=== PATIENT | female | born 1950 | race Caucasian/White ===

== ENCOUNTER → 2021-09-13 | Outpatient (CLI) | payer OTHER ==
[2021-09-13 15:50] LABS: ALBUMIN 4.1 g/dL (3.4-4.8)
[2021-09-13 15:51] LABS: POTASSIUM 4.1 mmol/L (3.5-5.1)
[2021-09-13 15:52] LABS: CALCIUM 9.7 mg/dL (8.3-10.5)
[2021-09-13 15:53] LABS: TOTAL PROTEIN 7.1 g/dL (6.2-8.1)
[2021-09-13 15:55] LABS: TOTAL BILIRUBIN 0.2 mg/dL (0.2-1.2)
== END ==
LOC: LAB 15:05
DX: G25.0 Essential tremor (principal)

== ENCOUNTER → 2021-12-14 | Outpatient (CLI) | payer OTHER | LOC: RAD 14:02 | DX: Z11.1 Encounter for screening for respiratory tuberculosis (principal) ==

== ENCOUNTER → 2022-01-26 | Outpatient (REF) ==
[2022-01-26 11:30] LABS: POTASSIUM 3.9 mmol/L (3.5-5.1)
== END ==
LOC: LAB 10:56
PROVIDERS: Family Medicine
DX: R22.43 Localized swelling, mass and lump, lower limb, bilateral (principal)

== ENCOUNTER → 2022-02-16 | Outpatient (CLI) | payer OTHER ==
[2022-02-16 11:12] LABS: URINE APPEARANCE CLEAR; URINE BILIRUBIN NEGATIVE (NEGATIVE); URINE BLOOD NEGATIVE (NEGATIVE); URINE COLOR YELLOW; URINE GLUCOSE NEGATIVE (NEGATIVE); URINE KETONE 1+ (NEGATIVE); URINE LEUKOCYTE ESTERASE TRACE (NEGATIVE); URINE NITRATE NEGATIVE (NEGATIVE); URINE PROTEIN(semi-quant) NEGATIVE (NEGATIVE); URINE UROBILINOGEN NORMAL (NORMAL)
== END ==
LOC: LAB 10:27
PROVIDERS: Family Medicine
DX: N39.0 Urinary tract infection, site not specified (principal)